=== PATIENT | male | born 1995 | race African-American/Black ===

== ENCOUNTER 2017-03-22 23:18 | Emergency (ER) | payer SELFPAY ==
[2017-03-23] MEDS ORDERED: Bacitracin Zinc 1 Packet ONE (02:34)
--- NOTE | 2017-03-23 08:41 | CT ---
PRELIMINARY REPORT/[facility]/EMERGENCY AFTER HOURS PROCEDURE: EXAM: CT Cervical Spine Without Intravenous Contrast CLINICAL HISTORY: 21 years old, male; Injury or trauma; Fall; Initial encounter; Abrasion; Patient HX: 21 yo m presents to ed for intoxication. Pt reports smoking marijuana this morning, having a few ETOH beverages this evening and drinking promethazine then ate two plates of pork chops. Pt reports feeling nauseous with abdominal pain after eating then got up from the table, felt dizzy, and fell to the floor. Family re ports pt passed out for about 2 minutes, eyes were rolling to back of head, then came to. Pt reports neck pain. TECHNIQUE: Axial computed tomography images of the cervical spine without intravenous contrast. Coronal and sagittal reformatted images were created and reviewed. COMPARISON: No relevant prior studies available. FINDINGS: On axial CT images, no definite acute fracture is visible. Sagittal and coronal reconstructions show no fracture or subluxation. No definite/significant disc herniation by CT, MRI could be more sensitive if clinically indicated. IMPRESSION: No definite acute fracture or subluxation by CT. Other findings discussed above. Thank you for allowing us to participate in the care of your patient. Dictated and Authenticated by: Tavo Diaz MD 03/23/2017 1:38 AM Central Time ([place] & [place]) FINAL REPORT EMERGENT AFTER HOURS STUDY CT CERVICAL SPINE NONCONTRAST: HISTORY: A 19-year-old male status post acute cervical trauma from fall. FINDINGS: Alignment is normal. The vertebral body heights are maintained. Disc spaces are maintained. There is no evidence of acute fracture. There is no evidence of high grade central spinal canal stenosis or hi gh grade neuroforaminal stenosis. There are no high grade degenerative facet changes. There is no p revertebral soft tissue swelling. This report agrees with preliminary report by [facility]. IMPRESSION: Normal. lizabeth[] POS: [facility]
--- NOTE | 2017-03-23 08:43 | CT ---
PRELIMINARY REPORT/[facility]/EMERGENCY AFTER HOURS PROCEDURE: EXAM: CT Head Without Intravenous Contrast CLINICAL HISTORY: 21 years old, male; Injury or trauma; Fall; Initial encounter; Abrasion; Head, generalized; Patient H X: 21 yo m presents to ed for intoxication. Pt reports smoking marijuana this morning, having a few ETOH beverages this evening and drinking promethazine then ate two plates of pork chops. Pt reports f eeling nauseous with abdominal pain after eating then got up from the table, felt dizzy, and fell to the floor. Family reports pt passed out for about 2 minutes, eyes were rolling to back of head, then came to. Pt reports neck pain. TECHNIQUE: Axial computed tomography images of the head/brain without intravenous contrast. COMPARISON: No relevant prior studies available. FINDINGS: No definite acute skull fracture. Included paranasal sinuses are essentially clear. No acute intracranial hemorrhage or mass effect. Ventricle size is normal for age. No definite acute infarct by CT. IMPRESSION: No acute intracranial bleed or mass effect. Thank you for allowing us to participate in the care of your patient. Dictated and Authenticated by: Tavo Diaz MD 03/23/2017 1:35 AM Central Time ([place] & [place]) FINAL REPORT EMERGENT AFTER HOURS STUDY CT BRAIN NONCONTRAST: HISTORY: A 21-year-old male status post acute head trauma from fall. FINDINGS: The ventricles are normal in size and configuration. There is no midline shift or any other mass eff ect. There is no evidence of acute intracranial hemorrhage, large cortical infarct, or extraaxial fl uid collection. The mark matter /white matter differentiation is maintained. The calvarium is intac t. The tympanomastoid cavities, and the upper portions of the paranasal sinuses included in these im ages, are grossly clear. This report agrees with preliminary report by [facility]. IMPRESSION: Normal. lizabeth [] POS: [facility]
== END 2017-03-23 02:51 | disposition home or self-care (01) ==
LOC: ERS 23:18
DX: S01.01XA Laceration without foreign body of scalp, initial encounter (principal); F10.129 Alcohol abuse with intoxication, unspecified; W18.30XA Fall on same level, unspecified, initial encounter
CPT/HCPCS: 12001; 70450; 72125; 93005

== ENCOUNTER 2017-04-01 08:23 | Emergency (ER) | payer SELFPAY | END 2017-04-01 09:03 | disposition home or self-care (01) | LOC: ERS 08:23 | DX: S01.01XD Laceration without foreign body of scalp, subsequent encounter (principal) ==